=== PATIENT | female | born 1965 | race Caucasian/White ===

== ENCOUNTER 2017-04-05 09:42 | Emergency (ER) | payer OTHER ==
[2017-04-05 11:08] VITALS: BP 147/83
[2017-04-05] MEDS ORDERED: FUL-GLO OP ONE (11:21)
[2017-04-05] MEDS ORDERED: TETRACAINE 0.5% OU ONE (11:23)
--- NOTE | 2017-04-05 12:06 | Emergency Department Report ---
[facility] Chief Complaint: Eye Problems Stated Complaint: RIGHT EYE PAIN Time Seen by Provider: 04/05/17 11:19 Duration: 4 Days Side: Right Severity: moderate Symptoms: Yes Eye Redness, Yes Eye Pain, Yes Blurred Vision, No Eye Itching, No Mucous Drainage, No Purulent Drainage, No Preceding URI, No H/O Allergic Rhinitis, No Contact Lens Use (eye glass use), No Trauma, No Fever, No Headache Other History: This is a 51 y.o. female presents with right eye pain, redness, swelling, and discharge. Patient states she woke up like this 4 days ago. She is putting warm compresses with minimal relief. States vision is blurry and it is hard for her to open eyes. Denies feeling like something is in the eye. Reports right eye remains blurry with glasses. ED Review of Systems ROS: Stated complaint: RIGHT EYE PAIN Other details as noted in HPI Constitutional: denies: chills, fever Eyes: eye pain (right eye), eye discharge (clear on right), vision change ( blurry on right) ENT: denies: ear pain, throat pain Respiratory: denies: cough, shortness of breath, wheezing Cardiovascular: denies: chest pain, palpitations Gastrointestinal: denies: abdominal pain, nausea, diarrhea Neurological: denies: headache, weakness, paresthesias ED Past Medical Hx - Past Medical History Previous Medical History?: No - Surgical History Past Surgical History?: No - Social History Smoking Status: Never Smoker Substance Use Type: None - Medications Home Medications: Home Medications Medication Instructions Recorded Confirmed Last Taken Type Ciprofloxacin 0.3% (Nf) 2.5 ml OP Q4HR #1 drops 04/05/17 Unknown Rx [Ciprofloxacin OPTH] Ketorolac Tromethamine [Acular 5 ml OP QID #1 drops 04/05/17 Unknown Rx 0.5% Opth Soln] [facility] Exam - Exam General: Vital signs noted. No distress. Alert and acting appropriately. Eye Exam: Right Injection, Right Mucous Discharge (clear), Right Fluorescein Uptake, Right Fluorescein Uptake (slit lamp), Right Photophobia, Both EOMI, Neither Chemosis, Neither Abnormal Pupil, Neither Eye Foreign Body, Neither Lid Foreign Body, Neither Purulent Discharge, Neither Cell/Flare (slit lamp), Neither Corneal Edema HEENT: No Nasal Congestion, No Pharyngeal Erythema Remainder of HEENT: Normal Lungs: Yes Clear Lung Sounds, Yes Good Air Exchange, No Wheezes, No Stridor, No Cough, No Nasal Flaring, No Retractions, No Use of Accessory Muscles ED Course Vital Signs 04/05/17 11:04 Temperature 98.2 F Pulse Rate 67 Respiratory 20 Rate Blood Pressure 147/83 O2 Sat by Pulse 99 Oximetry ED Medical Decision Making - Medical Decision Making 51 y.o. female presents with right eye pain, swelling, injection, and clear discharge x 4 days. Used warm compresses with no improvement. Vision is blurry w/wo corrective glasses. Photophobia Denies sensation of foreign body. fluorescein stain suspecious of corneal abrasion at 7 o'clock. Started on cipro gtts and referral to ophthalmology Dr. Myers. Critical care attestation.: If time is entered above; I have spent that time in minutes in the direct care of this critically ill patient, excluding procedure time. ED Disposition Clinical Impression: Corneal abrasion, right Qualifiers: Encounter type: initial encounter Qualified Code(s): S05.01XA - Injury of conjunctiva and corneal abrasion without foreign body, right eye, initial encounter Disposition: - TO HOME OR SELFCARE Is pt being admited?: No Does the pt Need Aspirin: No Condition: Stable Instructions: Corneal Abrasion (ED) Additional Instructions: Most symptoms will resolve in 1-2 days. Avoid high lighting or sun. Avoid rubbing or touching the eye. Return to ER if worsening pain, purulent discharge, changes in vision, or lack of improvement in 24-48 hours. Prescriptions: Ciprofloxacin 0.3% (Nf) [Ciprofloxacin OPTH] 2.5 ml OP Q4HR #1 drops Ketorolac Tromethamine [Acular 0.5% Opth Soln] 5 ml OP QID #1 drops Referrals: PRIMARY CARE, [Primary Care Provider] - 3-5 Days LITO MYERS MD [Staff Physician] - 3-5 Days Time of Disposition: 12:27 Print Language: UKRAINIAN
== END 2017-04-05 12:35 | disposition home or self-care (01) ==
LOC: ED 09:42
DX: S05.01XA Injury of conjunctiva and corneal abrasion without foreign body, right eye, initial encounter (principal); X58.XXXA Exposure to other specified factors, initial encounter; Y93.89 Activity, other specified; Y92.89 Other specified places as the place of occurrence of the external cause; Y99.8 Other external cause status
CPT/HCPCS: 99282